=== PATIENT | female | born 1980 | race Two or more races ===

== ENCOUNTER 2024-02-20 00:21 | Inpatient (IN) | payer MEDICAID ==
[~2024-02-20] VITALS: Ht 167.6 cm; Wt 92.8 kg
[2024-02-20] MEDS ORDERED: OLANZapine 5 MG RAPDIS TABLET PO PRN (01:30)
[2024-02-20] MEDS ORDERED: ZOLPIDEM TARTRATE 10 MG TABLET PO PRN (01:30)
[2024-02-20] MEDS ORDERED: INFLUENZA VIRUS VACCINE TVS (6MO+) 2024-25/PF 45 MCG/0.5 ML SYRINGE IM. ONE (02:15)
[2024-02-20] MEDS ORDERED: LORazepam 2 MG/ML VIAL ONE (03:36)
[2024-02-20] MEDS ORDERED: HALOPERIDOL LACTATE 5 MG/ML VIAL ONE (03:36)
[2024-02-20] MEDS ORDERED: DiphenhydrAMINE HCL 50 MG/ML VIAL ONE (03:36)
[2024-02-20] MEDS: HALOPERIDOL LACTATE 5 MG/ML VIAL IM ONE (03:45)
[2024-02-20] MEDS: DiphenhydrAMINE HCL 50 MG/ML VIAL IM ONE (03:45)
[2024-02-20] MEDS: LORazepam 2 MG/ML VIAL IM ONE (03:45)
[2024-02-20 04:36] VITALS: BP 154/100; PULSE 80; RESP 19; TEMP 97.1; O2SAT 99
[2024-02-20 04:44] VITALS: BP 154/100; PULSE 80; RESP 19; TEMP 97.1; O2SAT 99
[2024-02-20] MEDS ORDERED: MAG HYDROX/ALUMINUM HYD/SIMETH ES 30 ML SUSPENSION UDCUP PO PRN (07:15)
[2024-02-20] MEDS ORDERED: ACETAMINOPHEN 325 MG TABLET PO PRN (07:15)
[2024-02-20] MEDS ORDERED: HydrOXYzine PAMOATE 50 MG CAPSULE PO PRN (07:15)
[2024-02-20] MEDS ORDERED: GuaiFENesin/D-METHORPHAN [SUGAR-FREE] 200-20MG/10 ML SYRUP UDCUP PO PRN (07:15)
[2024-02-20] MEDS ORDERED: PROMETHAZINE HCL 25 MG TABLET PO PRN (07:15)
[2024-02-20] MEDS ORDERED: TUBERCULIN, PURIFIED PROTEIN DERIVATIVE 5 TU/0.1 ML SYRINGE ID ONE (07:15)
[2024-02-20] MEDS ORDERED: MAGNESIUM HYDROXIDE SUSPENSION 30 ML UDCUP PO PRN (07:15)
[2024-02-20] MEDS ORDERED: LOPERAMIDE HCL 2 MG CAPSULE PO PRN (07:15)
[2024-02-20 08:45] VITALS: BP 148/99; PULSE 80; RESP 18; TEMP 97.6; O2SAT 99
[2024-02-20] MEDS: THIAMINE 100 MG TABLET PO SCH (09:00)
[2024-02-20] MEDS: NALTREXONE HCL 50 MG TABLET PO SCH (09:00)
[2024-02-20] MEDS: MULTIVITAMINS WITH MINERALS, THERAPEUTIC TABLET PO SCH (09:00)
[2024-02-20] MEDS: FOLIC ACID 1 MG TABLET PO SCH (09:00)
[2024-02-20] MEDS: LORazepam 2 MG TABLET PO PRN (09:07)
[2024-02-20] MEDS: OLANZapine 5 MG RAPDIS TABLET PO SCH (10:00)
[2024-02-20] MEDS ORDERED: ALBUTEROL SULFATE HFA 90 MCG/PUFF 8 GM INHALER IH PRN (11:00)
[2024-02-20] MEDS: PALIPERIDONE PALMITATE 234 MG/1.5 ML SYRINGE IM ONE (11:17)
[2024-02-20] MEDS: MELATONIN 5 MG TABLET PO SCH (20:44)
[2024-02-20] MEDS ORDERED: OLANZapine 5 MG RAPDIS TABLET PO SCH (21:00)
[2024-02-20 22:42] VITALS: BP 140/92; PULSE 76; RESP 18; TEMP 97.1; O2SAT 98
[2024-02-21 08:35] VITALS: BP 152/90; PULSE 103; RESP 16; TEMP 97.2; O2SAT 96
[2024-02-21 19:07] VITALS: BP 156/97; PULSE 73; RESP 18; TEMP 98.5; O2SAT 98
[2024-02-21 20:19] VITALS: BP 156/97; RESP 18; TEMP 98.6; O2SAT 98
[2024-02-22 08:10] VITALS: BP 137/85; PULSE 79; RESP 18; TEMP 97.6; O2SAT 99
[2024-02-22 19:39] VITALS: RESP 18
[2024-02-23 08:09] VITALS: BP 112/63; PULSE 65; RESP 17; TEMP 97.1; O2SAT 97
[2024-02-23 23:45] VITALS: RESP 18
[2024-02-24 08:10] VITALS: BP 157/80; PULSE 77; RESP 17; TEMP 96.9; O2SAT 98
[2024-02-24] MEDS: PALIPERIDONE PALMITATE 156 MG/ML SYRINGE IM ONE (09:28)
[2024-02-24 20:51] VITALS: BP 143/77; PULSE 78; RESP 18; TEMP 97.1; O2SAT 98
[2024-02-25 08:43] VITALS: BP 156/100; PULSE 81; RESP 18; TEMP 97.6; O2SAT 95
[2024-02-25 13:07] VITALS: BP 137/87; PULSE 88; RESP 18; TEMP 97.7; O2SAT 95
[2024-02-25 20:14] VITALS: BP 156/84; PULSE 96; RESP 18; TEMP 97.6; O2SAT 98
[2024-02-26 08:28] VITALS: BP 147/89; PULSE 83; RESP 18; TEMP 98.2; O2SAT 97
[2024-02-26 21:00] VITALS: BP 140/79; PULSE 79; RESP 16; TEMP 97.5; O2SAT 98
[2024-02-27 08:12] VITALS: BP 128/72; PULSE 76; RESP 16; TEMP 97.6; O2SAT 97
[2024-02-27] MEDS: OLANZapine 5 MG RAPDIS TABLET PO SCH (20:35)
[2024-02-27 21:59] VITALS: BP 145/91; PULSE 79; RESP 18; TEMP 97.6; O2SAT 97
[2024-02-28 08:27] VITALS: BP 133/79; PULSE 82; RESP 16; TEMP 97.9; O2SAT 97
[2024-02-28 20:05] VITALS: RESP 17
[2024-02-29 08:25] VITALS: BP 126/68; PULSE 79; RESP 16; TEMP 96.8; O2SAT 98
[2024-02-29] MEDS: HALOPERIDOL 5 MG TABLET PO SCH (13:00)
[2024-02-29] MEDS: HALOPERIDOL LACTATE 5 MG/ML VIAL IM PRN (13:51)
[2024-02-29] MEDS: BENZTROPINE MESYLATE 2 MG TABLET PO SCH (16:35)
[2024-02-29 20:07] VITALS: BP 173/93; PULSE 89; RESP 18; TEMP 97.2; O2SAT 98
[2024-03-01 08:29] VITALS: BP 142/87; PULSE 75; RESP 17; TEMP 97.5; O2SAT 98
[2024-03-01 20:47] VITALS: BP 108/72; PULSE 85; RESP 16; TEMP 97.4; O2SAT 99
[2024-03-02 08:37] VITALS: RESP 16
[2024-03-02 20:44] VITALS: BP 149/91; PULSE 86; RESP 15; TEMP 91.8; TEMP 98.2; O2SAT 97
[2024-03-03 08:17] VITALS: BP 116/68; PULSE 78; RESP 16; TEMP 96.9; O2SAT 97
[2024-03-03 20:07] VITALS: BP 132/93; PULSE 89; RESP 18; TEMP 97.1; O2SAT 98
[2024-03-03] MEDS ORDERED: BENZ2TAB84 PO (22:25)
[2024-03-03] MEDS ORDERED: HALO5TAB23 PO (22:25)
[2024-03-04 08:11] VITALS: BP 163/107; PULSE 98; RESP 16; TEMP 97.6; O2SAT 98
== END 2024-03-04 12:46 | disposition home or self-care (01) | DRG 750 ==
LOC: B3A 01:28
PROVIDERS: ADMIT Psychiatry & Neurology Psychiatry; ATTEND Psychiatry & Neurology Psychiatry
PROC: GZHZZZZ Group Psychotherapy (ICD-10-PCS; principal; 2024-02-20)
PROC: GZ51ZZZ Individual Psychotherapy, Behavioral (ICD-10-PCS; 2024-02-20)
DX: F20.0 Paranoid schizophrenia (principal); G93.41 Metabolic encephalopathy; E66.9 Obesity, unspecified; Z91.148 Patient's other noncompliance with medication regimen for other reason; Z91.199 Patient's noncompliance with other medical treatment and regimen due to unspecified reason; Z68.33 Body mass index [BMI] 33.0-33.9, adult
CPT/HCPCS: J1200; J1630; J2060